=== PATIENT | male | born 1965 | race Caucasian/White ===

== ENCOUNTER 2024-01-17 04:32 | Day surgery (SDC) | payer OTHER ==
[2024-01-15 15:55] VITALS: BMI 21.7
[2024-01-17 09:48] VITALS: TEMP 98
[2024-01-17 10:13] VITALS: BP 103/50; PULSE 66; RESP 19
== END 2024-01-17 10:22 | disposition home or self-care (01) ==
LOC: JASU-ENDO 04:32
PROVIDERS: ATTEND Internal Medicine Gastroenterology
PROC: 0DJD8ZZ Inspection of Lower Intestinal Tract, Via Natural or Artificial Opening Endoscopic (ICD-10-PCS; principal; 2024-01-17 08:30)
DX: Z12.11 Encounter for screening for malignant neoplasm of colon (principal)